=== PATIENT | female | born 1950 | race Caucasian/White ===

== ENCOUNTER 2016-10-06 20:35 | Emergency (ER) | payer SELFPAY ==
[~2016-10-06] VITALS: Ht 154.9 cm; Wt 45.4 kg
[2016-10-06 20:40] VITALS: BP 126/71
== END 2016-10-06 20:52 | disposition left against medical advice (07) ==
LOC: ER 20:39
DX: Z53.21 Procedure and treatment not carried out due to patient leaving prior to being seen by health care provider (principal)
CPT/HCPCS: A4606; Z7610